=== PATIENT | male | born 1995 | race Caucasian/White ===

== ENCOUNTER 2019-09-23 10:17 | Emergency (ER) | payer SELFPAY ==
[2019-09-23] VITALS (10 sets, daily range): BP systolic 112–142; BP diastolic 63–85; PULSE 69–96; RESP 13–20; TEMP 36.8; O2SAT 95–100; BMI 29.8
--- NOTE | 2019-09-23 10:28 | DI.RAD.S_ITS ---
PROCEDURE: XR CHEST 1V INDICATIONS: chest pain TECHNIQUE: One view of the chest was acquired. COMPARISON: None. FINDINGS: Surgical changes and devices: Midline sutures are seen. Lungs and pleura: Lungs are clear. No pleural effusions or pneumothorax. Mediastinum: Mediastinal contours appear normal. Heart size is normal. Bones and chest wall: No suspicious bony lesions. Overlying soft tissues appear unremarkable. IMPRESSION: Portable chest within normal limits, with midline sutures noted. Dictated by: Benjamin Corado M.D. on 09/23/2019 at 10:09 Approved by: Benjamin Corado M.D. on 09/23/2019 at 10:10
[2019-09-23 11:11] LABS: Add Manual Diff / Slide Review NO; Basophils Absolute Auto 0 /uL (0-100); Basophils Percent Auto 0.3 % (0-2); Eosinophils Absolute Auto 100 /uL (0-450); Hematocrit 47.4 % (41-53); Hemoglobin 16.8 g/dL (13.5-17.5); Lymphocytes Absolute Auto 1800 /uL (1100-4500); Lymphocytes Percent Auto 25.7 % (25-40); Mean Corpuscular HGB Conc 35.3 % (30-36); Mean Corpuscular Hemoglobin 30.6 PG (26-34); Mean Corpuscular Volume 86.7 fL (80-100); Monocytes Absolute Auto 1000 /uL (0-900); Monocytes Percent Auto 14.2 % (3-14); Neutrophils Absolute Auto 4200 /uL (1500-7000); Neutrophils Percent Auto 58.8 % (50-75); Platelet Count 243 X10^3/uL (150-400); Red Blood Cell Count 5.47 X10^6/uL (4.5-5.9); Red Cell Distribution Width 12.8 % (11.6-14.8); White Blood Cell Count 7.1 X10^3/uL (4.5-11.0)
[2019-09-23 11:14] LABS: INR 1.1 (0.9-1.3); Prothrombin Time 12.8 SECONDS (10.1-12.7)
[2019-09-23 11:17] LABS: PTT Partial Thromboplastin Tim 37 SECONDS (26.4-36.2)
[2019-09-23 11:20] LABS: Alanine Aminotransferase 63 IU/L (<50); Albumin 4.9 g/dL (3.5-5.0); Albumin Globulin Ratio 1.4 (1.0-2.8); Alkaline Phosphatase 67 U/L (38-126); Aspartate Aminotransferase 31 IU/L (17-59); BUN Creatinine Ratio 15.6 (6-22); Blood Urea Nitrogen 14 mg/dL (9-20); Calcium 10.1 mg/dL (8.4-10.2); Carbon Dioxide 28 mmol/L (22-32); Chloride 102 mmol/L (98-107); Creatine Kinase 60 U/L (55-170); Estimated Glomerular Filt Rate > 60.0 mL/min (>60); Globulin 3.6 g/dL (1.7-4.1); Glucose 102 mg/dL (70-100); HEMOLYSIS < 15 (0-50); Lipase 59 U/L (23-300); Potassium 4.2 mmol/L (3.4-5.1); Sodium 141 mmol/L (137-145); Total Protein 8.5 g/dL (6.3-8.2)
[2019-09-23 11:22] LABS: C-Reactive Protein Quant 6.8 mg/dL (<1.0)
[2019-09-23 11:31] LABS: Troponin I < 0.012 ng/mL (0.01-0.034)
[2019-09-23 11:35] LABS: Erythrocyte Sedimentation Rate 30 MM/HR (0-15)
[2019-09-23] MEDS: CYCLOBENZAPRINE 10 MG TABLET PO (12:25)
[2019-09-23] MEDS: KETOROLAC 60 MG/2 ML VIAL 30 MG IV (12:25)
[2019-09-23 12:34] LABS: D Dimer 393 ng/mL (<230)
--- NOTE | 2019-09-23 12:45 | ED.CHESTPAIN ---
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 This was performed in [place] and presumably the [facility]. The patient states that he has developed progressively worsening shortness of breath and dyspnea for the last few weeks. He states that it hurts to take a deep breath and feels like he has been punched in the center of his chest. The discomfort is a dull achy discomfort. He has called his mother who was a physician and told him that it is probably just bronchitis. Most often the pain is dull and achy but sometimes it becomes very sharp and D and worse with deep breathing and laying down. He states that he can hardly lay down without pain and discomfort and increasing shortness of breath. He quit smoking a few weeks ago does not drink alcohol or use any drugs. He works as a cook. He denies a history of asthma seizures hypertension and diabetes mellitus. He also denies a history of TB HIV and hepatitis. He has had no fever chills that has cold sweats at nighttime. He states that when he deep breathes the pain is 10/10 and when he is at rest it is 3/10. He has had no cough palpitations or dizziness. He has had no nausea vomiting abdominal pain diarrhea or urinary symptoms. Related Data Home Medications Medication Instructions Recorded Confirmed No Known Home Medications 09/23/19 09/23/19 Allergies Allergy/AdvReac Type Severity Reaction Status Date / Time No Known Drug Allergies Allergy Verified 09/23/19 12:24 Review of Systems Review of Systems Narrative: Review of systems are all negative except for those mentioned in the history of present illness. Patient History Medical History Atrioventricular canal defect (Acute) Social History Smoking Status: Current every day smoker Smoking Status: Current every day smoker alcohol intake frequency: other Substance Use Type: does not use Exam Narrative Exam Narrative: PHYSICAL EXAM: CONSTITUTIONAL: Awake, Alert, Oriented, Coherent, Cooperative in NAD. Does not appear toxic or ill. HEAD: AT/NC EENT: PERRL, FROM of eyes, no discharge, no nystagmus Oral mucosa is moist and pink, posterior pharynx is without erythema or exudate. NECK: Supple, no obvious JVD, Trachea is midline without stridor, no palpable LN or masses. SPINE: No gross deformity, no palpable tenderness of the cervical, thoracic, lumbar or sacral spine. No CVA tenderness. THORAX: No deformity, retractions, chest wall tenderness, subcutaneous air or crepitice. LUNGS: Clear symmetrical breath sounds without respiratory distress HEART: Distant muffled heart tones their regular rhythm and rate without murmur. ABDOMEN: Soft, non-tender, normal bowel sounds without guarding, rebound, rigidity or palpable mass EXTREMITIES: No edema, cyanosis, deformity or tenderness. SKIN: No rash, bruising, petechiae or purpura. NEURO: Awake, alert, oriented, conversive, cranial nerves II-XII are symmetrical and normal, moves all 4 extremities Initial Vital Signs Initial Vital Signs: Vital Signs Temperature 98.2 F 09/23/19 10:24 Pulse Rate 96 H 09/23/19 10:24 Respiratory Rate 20 09/23/19 10:24 Blood Pressure 139/85 09/23/19 10:24 Pulse Oximetry 95 09/23/19 10:24 Course Course Course Narrative: 1246: The patient's D-dimer is elevated at 393. A CT angiogram of his chest will be obtained. 1418: The patient's CT CT angiogram of his chest revealed that he had negative pulmonary embolism moderate pericardial effusion abnormal ground-glass opacity seen in the lungs suggestive of pulmonary edema possible atypical infection. Chest x-ray on admission revealed no acute cardiopulmonary pathology with midline sutures. The patient states checking with his mother he had an AV canal defect repaired with a prosthetic pig valve replacing the mitral valve. Will discuss with the construction producer on-call. The patient's EKG obtained on September 23 at 10:3 1:31 a.m. revealed a sinus tachycardia with a ventricular rate of 100. QRS is 146 milliseconds duration QTC is normal. Patient has a left axis deviation. EKG reveals a right bundle branch block with a left anterior fascicular block left ventricular hypertrophy by voltage criteria. The patient has no acute diagnostic ST segment changes at this time. ST segments are depressed in V1 V2 with inverted T-waves. Initially I discussed the patient with Dr. Fowler recommended that I call [facility] in [facility] to discuss this with the construction producer who are specialists with AV canal repair. 1500 I discussed the patient with Stormy Jeffery [employer] will working with the construction producer Dr. Vidales. Will discuss with Dr. andra young and decide whether not they are the appropriate place for his congenital repair of an AV canal repair or whether not he should go to the [place]. They will call back. 1558: Nurse practitioner Jose D call back from Cardiology at [facility] in billing [facility] and Dr. Vidales recommended that the patient be transferred to to be seen by their construction producer and evaluated. 1655: I discussed the patient with the transfer nurse at who will discuss the patient with a construction producer and obtain a monitored bed and call back. 1709: Dr. Maricel Palomares construction producer at has accepted the patient to the main [facility]. Will call back when a telemetry bed is available or assigned. Orders Ordered: Discontinued Medications Cyclobenzaprine HCl (Flexeril) 10 mg PO NOW ONE Stop: 09/23/19 12:06 Last Admin: 09/23/19 12:25 Dose: 10 mg Documented by: JERONIMO Sodium Chloride (Normal Saline 0.9%) 1,000 mls @ 1,000 mls/hr IV BOLUS ONE Stop: 09/23/19 13:46 Last Infusion: 09/23/19 14:49 Dose: 0 mls/hr Documented by: Infusion: 09/23/19 13:52 Dose: 0 mls/hr Documented by: Admin: 09/23/19 13:00 Dose: 1,000 mls/hr Documented by: JERONIMO Ketorolac Tromethamine (Toradol) 30 mg IV NOW ONE Stop: 09/23/19 12:06 Last Admin: 09/23/19 12:25 Dose: 30 mg Documented by: JERONIMO Vital Signs Vital signs: Vital Signs - 8 hr 09/23/19 12:28 09/23/19 15:00 09/23/19 15:30 Pulse Rate 70 81 80 Respiratory Rate 18 18 18 Blood Pressure [Right Arm] 131/71 120/73 117/63 Pulse Oximetry 99 99 99 09/23/19 16:00 09/23/19 16:30 09/23/19 17:00 Pulse Rate 71 77 80 Respiratory Rate 18 13 18 Blood Pressure [Right Arm] 128/72 122/80 142/77 H Pulse Oximetry 97 100 99 09/23/19 18:00 09/23/19 19:04 Pulse Rate 77 69 Respiratory Rate 18 18 Blood Pressure [Right Arm] 138/80 112/79 Pulse Oximetry 99 99 MDM - Chest Pain Lab Data Result diagrams: 09/23/19 10:55 09/23/19 10:55 Labs: Lab Results 09/23/19 09/23/19 09/23/19 Range/Units 10:55 10:55 10:55 WBC 7.1 (4.5-11.0) X10^3/uL RBC 5.47 (4.5-5.9) X10^6/uL Hgb 16.8 (13.5-17.5) g/dL Hct 47.4 (41-53) % MCV 86.7 (80-100) fL MCH 30.6 (26-34) PG MCHC 35.3 (30-36) % RDW 12.8 (11.6-14.8) % Plt Count 243 (150-400) X10^3/uL Neut % (Auto) 58.8 (50-75) % Lymph % (Auto) 25.7 (25-40) % [place] % (Auto) 14.2 H (3-14) % Eos % (Auto) 1.0 L (2-4) % Baso % (Auto) 0.3 (0-2) % Neut # (Auto) 4200 (8173-9919) /uL Lymph # (Auto) 1800 (8216-7982) /uL [place] # (Auto) 1000 H (0-900) /uL Eos # (Auto) 100 (0-450) /uL Baso # (Auto) 0 (0-100) /uL ESR (0-15) MM/HR PT 12.8 H (10.1-12.7) SECONDS INR 1.1 (0.9-1.3) APTT 37 H (26.4-36.2) SECONDS D-Dimer (<230) ng/mL Sodium 141 (137-145) mmol/L Potassium 4.2 (3.4-5.1) mmol/L Chloride 102 (98-107) mmol/L Carbon Dioxide 28 (22-32) mmol/L BUN 14 (9-20) mg/dL Creatinine 0.90 (0.66-1.25) mg/dL Estimated GFR > 60.0 (>60) mL/min BUN/Creatinine Ratio 15.6 (6-22) Glucose 102 H (70-100) mg/dL Calcium 10.1 (8.4-10.2) mg/dL Total Bilirubin 1.0 (0.2-1.3) mg/dL AST 31 (17-59) IU/L ALT 63 H (<50) IU/L Alkaline Phosphatase 67 (38-126) U/L Total Creatine Kinase 60 (55-170) U/L CK-MB (CK-2) TNP CK-MB (CK-2) Rel Index TNP Troponin I < 0.012 (0.01-0.034) ng/mL C-Reactive Protein (<1.0) mg/dL NT-Pro-B Natriuret Pep (<125) pg/mL Total Protein 8.5 H (6.3-8.2) g/dL Albumin 4.9 (3.5-5.0) g/dL Globulin 3.6 (1.7-4.1) g/dL Albumin/Globulin Ratio 1.4 (1.0-2.8) Lipase 59 (23-300) U/L 09/23/19 09/23/19 09/23/19 Range/Units 10:55 10:55 10:55 WBC (4.5-11.0) X10^3/uL RBC (4.5-5.9) X10^6/uL Hgb (13.5-17.5) g/dL Hct (41-53) % MCV (80-100) fL MCH (26-34) PG MCHC (30-36) % RDW (11.6-14.8) % Plt Count (150-400) X10^3/uL Neut % (Auto) (50-75) % Lymph % (Auto) (25-40) % [place] % (Auto) (3-14) % Eos % (Auto) (2-4) % Baso % (Auto) (0-2) % Neut # (Auto) (6557-1043) /uL Lymph # (Auto) (9254-2232) /uL [place] # (Auto) (0-900) /uL Eos # (Auto) (0-450) /uL Baso # (Auto) (0-100) /uL ESR 30 H (0-15) MM/HR PT (10.1-12.7) SECONDS INR (0.9-1.3) APTT (26.4-36.2) SECONDS D-Dimer 393 H (<230) ng/mL Sodium (137-145) mmol/L Potassium (3.4-5.1) mmol/L Chloride (98-107) mmol/L Carbon Dioxide (22-32) mmol/L BUN (9-20) mg/dL Creatinine (0.66-1.25) mg/dL Estimated GFR (>60) mL/min BUN/Creatinine Ratio (6-22) Glucose (70-100) mg/dL Calcium (8.4-10.2) mg/dL Total Bilirubin (0.2-1.3) mg/dL AST (17-59) IU/L ALT (<50) IU/L Alkaline Phosphatase (38-126) U/L Total Creatine Kinase (55-170) U/L CK-MB (CK-2) CK-MB (CK-2) Rel Index Troponin I (0.01-0.034) ng/mL C-Reactive Protein 6.8 H (<1.0) mg/dL NT-Pro-B Natriuret Pep (<125) pg/mL Total Protein (6.3-8.2) g/dL Albumin (3.5-5.0) g/dL Globulin (1.7-4.1) g/dL Albumin/Globulin Ratio (1.0-2.8) Lipase (23-300) U/L 09/23/ Range/Units 10:55 WBC (4.5-11.0) X10^3/uL RBC (4.5-5.9) X10^6/uL Hgb (13.5-17.5) g/dL Hct (41-53) % MCV (80-100) fL MCH (26-34) PG MCHC (30-36) % RDW (11.6-14.8) % Plt Count (150-400) X10^3/uL Neut % (Auto) (50-75) % Lymph % (Auto) (25-40) % [place] % (Auto) (3-14) % Eos % (Auto) (2-4) % Baso % (Auto) (0-2) % Neut # (Auto) (9004-0023) /uL Lymph # (Auto) (5859-0044) /uL [place] # (Auto) (0-900) /uL Eos # (Auto) (0-450) /uL Baso # (Auto) (0-100) /uL ESR (0-15) MM/HR PT (10.1-12.7) SECONDS INR (0.9-1.3) APTT (26.4-36.2) SECONDS D-Dimer (<230) ng/mL Sodium (137-145) mmol/L Potassium (3.4-5.1) mmol/L Chloride (98-107) mmol/L Carbon Dioxide (22-32) mmol/L BUN (9-20) mg/dL Creatinine (0.66-1.25) mg/dL Estimated GFR (>60) mL/min BUN/Creatinine Ratio (6-22) Glucose (70-100) mg/dL Calcium (8.4-10.2) mg/dL Total Bilirubin (0.2-1.3) mg/dL AST (17-59) IU/L ALT (<50) IU/L Alkaline Phosphatase (38-126) U/L Total Creatine Kinase (55-170) U/L CK-MB (CK-2) CK-MB (CK-2) Rel Index Troponin I (0.01-0.034) ng/mL C-Reactive Protein (<1.0) mg/dL NT-Pro-B Natriuret Pep 72 (<125) pg/mL Total Protein (6.3-8.2) g/dL Albumin (3.5-5.0) g/dL Globulin (1.7-4.1) g/dL Albumin/Globulin Ratio (1.0-2.8) Lipase (23-300) U/L Discharge Plan Departure Patient Disposition: [facility] Clinical Impression: Atypical chest pain, Effusion, pericardium, Acute dyspnea Pulmonary edema Qualifiers: Chronicity: acute Qualified Code(s): J81.0 - Acute pulmonary edema Pericarditis Qualifiers: Pericarditis type: unspecified type Chronicity: unspecified Qualified Code(s): I31.9 - Disease of pericardium, unspecified Discharge Date/Time: 09/23/19 21:00 Prescriptions: No Action No Known Home Medications RF: 0
--- NOTE | 2019-09-23 12:47 | DI.CT.S_ITS ---
PROCEDURE: CT ANGIO CHEST PE PROTOCOL INDICATIONS: chest pain, Dyspnea, elevated D-dimer r/o PE TECHNIQUE: After the administration of intravenous contrast, 2 mm thick sections acquired from the pulmonary apices to the posterior costophrenic angles. 3-dimensional maximum intensity projection (MIP) coronal and sagittal reformats were then acquired through the thorax. For radiation dose reduction, the following was used: automated exposure control, adjustment of mA and/or kV according to patient size. COMPARISON: [facility], CR, XR CHEST 1V, 09/23/2019, 10:52. FINDINGS: Image quality: Excellent. Pulmonary arteries: Pulmonary arteries are normal in size, and demonstrate no intraluminal filling defects to suggest central pulmonary embolism. Lungs and pleura: Mild patchy areas of groundglass opacity can be seen within the lungs, which are most prominent dependently. No pleural effusions or pneumothorax. Central and peripheral airways are patent. Mediastinum: Heart size is normal. There is a moderate pericardial effusion. No mediastinal or hilar adenopathy. Thoracic aorta is normal in caliber and enhancement. Esophagus is normal in caliber, without hiatal hernia. Bones and chest wall: No suspicious bony lesions. Sutures can be seen through the sternum. Mild pectus excavatum deformity. Ribs and thoracic spine appear intact throughout. Thyroid gland demonstrates. No axillary or supraclavicular adenopathy. Abdomen: Diffuse fatty liver infiltration is noted. The visualized portions of the upper abdominal structures are otherwise unremarkable for imaging technique. IMPRESSION: Negative for pulmonary embolism. Moderate pericardial effusion. Abnormal groundglass opacities seen within the lungs. Differential diagnosis includes pulmonary edema and atypical infection. Incidental note is made of: Postoperative change of the sternum Mild pectus excavatum deformity Fatty liver infiltration Note: Case discussed by telephone with nurse Thuy at 1:46 PM [place] time on September 23, 2019, who will discuss the case with Dr. Pinto. Dr. Pinto will call back if there are any questions. Dictated by: Benjamin Corado M.D. on 09/23/2019 at 12:43 Approved by: Benjamin Corado M.D. on 09/23/2019 at 12:49
[2019-09-23] MEDS: SODIUM CHLORIDE 0.9% 1,000 ML 1000 ML IV (13:00)
--- NOTE | 2019-09-23 13:48 | PC.NURSE ---
Received phone call from Dr. Corado (radiology). Dr. Pitno unable to take call, asked me to take message. Pt CT demonstrated moderate pericardial effusion and + pulmonary edema. Report given to Dr. Pinto w/ call back numbers for Dr. Corado.
[2019-09-23 14:39] LABS: NT-proBNP (BNP-Adult 18+) 72 pg/mL (<125)
== END 2019-09-23 21:00 | disposition short-term general hospital (02) ==
PROVIDERS: Emergency Provider Emergency Medicine
DX: J81.0 Acute pulmonary edema (principal); I31.9 Disease of pericardium, unspecified
CPT/HCPCS: 36415; 71045; 71275; 80053; 82550; 83690; 83880; 84484; 85025; 85379; 85610; 85651; 85730; 86140; 93005; 96361; 96374; 99285; J1885; Q9967

== ENCOUNTER → 2021-06-05 08:49 | Outpatient (CLI) | payer SELFPAY ==
[2021-06-05 19:42] LABS: Add Manual Diff / Slide Review NO; Basophils Absolute Auto 0 /uL (0-100); Basophils Percent Auto 0.1 % (0-2); Eosinophils Absolute Auto 100 /uL (0-450); Eosinophils Percent Auto 2.2 % (2-4); Hematocrit 49.6 % (41-53); Hemoglobin 17.3 g/dL (13.5-17.5); Lymphocytes Absolute Auto 1300 /uL (1100-4500); Mean Corpuscular HGB Conc 34.9 % (30-36); Mean Corpuscular Hemoglobin 30.3 PG (26-34); Mean Corpuscular Volume 86.9 fL (80-100); Monocytes Absolute Auto 800 /uL (0-900); Monocytes Percent Auto 21.8 % (3-14); Neutrophils Absolute Auto 1500 /uL (1500-7000); Neutrophils Percent Auto 41.9 % (50-75); Platelet Count 207 X10^3/uL (150-400); Red Blood Cell Count 5.71 X10^6/uL (4.5-5.9); Red Cell Distribution Width 13.7 % (11.6-14.8); White Blood Cell Count 3.7 X10^3/uL (4.5-11.0)
[2021-06-05 20:06] LABS: Alanine Aminotransferase 57 IU/L (<50); Albumin 4.8 g/dL (3.5-5.0); Albumin Globulin Ratio 1.6 (1.0-2.8); Alkaline Phosphatase 66 U/L (38-126); Aspartate Aminotransferase 44 IU/L (17-59); BUN Creatinine Ratio 14.7 (6-22); Bilirubin Total 1.7 mg/dL (0.2-1.3); Blood Urea Nitrogen 14 mg/dL (9-20); Carbon Dioxide 25 mmol/L (22-32); Chloride 106 mmol/L (98-107); Estimated Glomerular Filt Rate > 60.0 mL/min (>60); Glucose 102 mg/dL (70-100); HEMOLYSIS 42 (0-50); Potassium 4.4 mmol/L (3.4-5.1); Sodium 141 mmol/L (137-145); Total Protein 7.8 g/dL (6.3-8.2)
[2021-06-06 16:31] LABS: HIV 1 & 2 Ab/Ag 4th Gen Combo NEGATIVE (NEGATIVE)
[2021-06-07 04:07] LABS: HSV 2 IGG AB < 0.91 index (0.00-0.90)
[2021-06-07 08:11] LABS: RPR Screen Non Reactive (Non Reactive)
[2021-06-10 04:56] LABS: Chlamydia trachomatis Positive (Negative); Mycoplasma genitalium Negative (Negative); Neisseria gonorrhoeae Negative (Negative)
== END ==
PROVIDERS: PCP Family Medicine; Visit Provider Physician Assistant
DX: R30.9 Painful micturition, unspecified (principal); Z20.2 Contact with and (suspected) exposure to infections with a predominantly sexual mode of transmission; N50.819 Testicular pain, unspecified; R30.0 Dysuria
CPT/HCPCS: 80053; 85025; 86592; 86695; 86696; 87086; 87389; 87491; 87563; 87591

== ENCOUNTER → 2021-07-16 15:09 | Outpatient (CLI) | payer SELFPAY ==
[2021-07-17 20:27] LABS: Urine N gonorrhoeae NOT DETECTED
[2021-07-17 20:32] LABS: Urine Chlamydia NOT DETECTED
== END ==
PROVIDERS: PCP Family Medicine; Referring Provider Physician Assistant; Visit Provider Physician Assistant
DX: R30.0 Dysuria (principal)
CPT/HCPCS: 87491; 87591